=== PATIENT | female | born 1975 ===

== ENCOUNTER 2017-09-16 14:51 | Emergency (ER) | payer OTHER ==
[~2017-09-16] VITALS: Ht 167.6 cm; Wt 92.5 kg
[2017-09-16] MEDS ORDERED: BUPROPION XL300 MG (15:29)
[2017-09-16] MEDS ORDERED: JANUVIA100 MG (15:29)
[2017-09-16] MEDS ORDERED: RISPERDAL M-TAB1 MG (15:29)
[2017-09-16] MEDS ORDERED: ENALAPRIL MALEAT5 MG (15:30)
[2017-09-16] MEDS ORDERED: CLONAZEPAM1 MG (15:30)
[2017-09-16] MEDS ORDERED: PANTOPRAZOLE SO40 MG (15:31)
[2017-09-16] MEDS ORDERED: VASOTEC5 MG (15:39)
[2017-09-27] MEDS ORDERED: WELLBUTRIN XL300 MG PO (13:15)
[2017-09-27] MEDS ORDERED: CLONAZEPAM1 MG PO (13:16)
[2017-09-27] MEDS ORDERED: LEVO-T25 MCG PO (13:16)
[2017-09-27] MEDS ORDERED: PAXIL40 MG PO (13:17)
[2017-09-27] MEDS ORDERED: PRILOSEC10 M2 PO (13:17)
[2017-09-27] MEDS ORDERED: LANTUS SOL100 UNIT/1 (13:17)
[2017-09-27] MEDS ORDERED: HUMALOG100 UNIT/1 (13:18)
== END 2017-09-16 22:54 | disposition home or self-care (01) ==
LOC: ER 14:51
DX: R10.32 Left lower quadrant pain (principal)

== ENCOUNTER 2017-10-01 05:50 | Inpatient (IN) | payer OTHER ==
[~2017-10-01] VITALS: Ht 170.2 cm; Wt 90.3 kg
[~2017-10-01 05:50] MED LIST: BUPROPION XL300 MG; CLONAZEPAM1 MG; CLONAZEPAM1 MG PO; ENALAPRIL MALEAT5 MG; HUMALOG100 UNIT/1; JANUVIA100 MG; LANTUS SOL100 UNIT/1; LEVO-T25 MCG PO; PANTOPRAZOLE SO40 MG; PAXIL40 MG PO; PRILOSEC10 M2 PO; RISPERDAL M-TAB1 MG; VASOTEC5 MG; WELLBUTRIN XL300 MG PO
[2017-10-04] MEDS ORDERED: HYOSCYAMINE0.125 M1 SL (17:36)
[2017-10-04] MEDS ORDERED: Intestinex CAP PO (17:36)
[2017-10-04] MEDS ORDERED: POLY119PG PO (17:36)
[2017-10-04] MEDS ORDERED: AMOX1TAB5 PO (17:38)
== END 2017-10-04 18:38 | DRG 744 ==
LOC: CIR.AMB 05:50 → O/R 12:22 → OB/GYN 12:22 → CIR.AMB 12:23 → OB/GYN 13:09 → CIR.AMB 15:38 → OB/GYN 10-03 08:59
PROVIDERS: Obstetrics & Gynecology; Surgery
PROC: 0DNE4ZZ Release Large Intestine, Percutaneous Endoscopic Approach (ICD-10-PCS; 2017-10-01)
PROC: 0UDB8ZX Extraction of Endometrium, Via Natural or Artificial Opening Endoscopic, Diagnostic (ICD-10-PCS; principal; 2017-10-01 07:00)
PROC: 0WJJ4ZZ Inspection of Pelvic Cavity, Percutaneous Endoscopic Approach (ICD-10-PCS; 2017-10-01 07:00)
PROC: 0DQE4ZZ Repair Large Intestine, Percutaneous Endoscopic Approach (ICD-10-PCS; 2017-10-01 07:00)
DX: N84.0 Polyp of corpus uteri (principal); K91.72 Accidental puncture and laceration of a digestive system organ or structure during other procedure; N93.8 Other specified abnormal uterine and vaginal bleeding; K66.0 Peritoneal adhesions (postprocedural) (postinfection)

== ENCOUNTER 2017-10-16 00:01 | Inpatient (IN) | payer OTHER ==
[~2017-10-16] VITALS: Ht 170.2 cm; Wt 90.3 kg
[~2017-10-16 00:01] MED LIST changes: +AMOX1TAB5 PO; +HYOSCYAMINE0.125 M1 SL; +Intestinex CAP PO; +POLY119PG PO
[2017-10-19] MEDS ORDERED: LINEZOLID600 MG PO (09:32)
== END 2017-10-19 11:30 | disposition home or self-care (01) | DRG 603 ==
LOC: ER 00:01 → MEDI 12:39 → SEC-K 12:39 → MEDI 16:20
PROC: B54NZZZ Ultrasonography of Left Upper Extremity Veins (ICD-10-PCS; principal; 2017-10-16)
PROC: BW21Y0Z Computerized Tomography (CT Scan) of Abdomen and Pelvis using Other Contrast, Unenhanced and Enhanced (ICD-10-PCS; 2017-10-16)
DX: L03.114 Cellulitis of left upper limb (principal); I80.8 Phlebitis and thrombophlebitis of other sites; E11.65 Type 2 diabetes mellitus with hyperglycemia

== ENCOUNTER 2017-11-16 11:00 | Inpatient (IN) | payer OTHER ==
[~2017-11-16 11:00] MED LIST changes: +LINEZOLID600 MG PO
[2017-11-27] MEDS ORDERED: JANUVIA100 MG (14:48)
[2017-11-27] MEDS ORDERED: ESTAZOLAM1 MG (14:49)
[2017-11-27] MEDS ORDERED: PEPCID40 MG (14:49)
[2017-11-27] MEDS ORDERED: RISPERDAL1 MG (14:50)
[2017-11-27] MEDS ORDERED: WELLBUTRIN XL300 MG (14:51)
[2017-11-27] MEDS ORDERED: HUMALOG100 UNIT/1 (14:55)
[2017-11-29] MEDS ORDERED: GABAPENTIN600 MG PO (07:18)
[2017-11-29] MEDS ORDERED: ESTAZOLAM1 MG PO (10:32)
== END 2017-11-29 12:17 | DRG 739 ==
LOC: O/R 11-26 06:26 → RECOVERY 11-26 07:00 → OB/GYN 11-26 10:37 → RECOVERY 11-26 11:00 → OB/GYN 11-29 12:17
PROVIDERS: Obstetrics & Gynecology
PROC: 0DNW0ZZ Release Peritoneum, Open Approach (ICD-10-PCS; 2017-11-26)
PROC: 0UT10ZZ Resection of Left Ovary, Open Approach (ICD-10-PCS; 2017-11-26)
PROC: 0UT90ZZ Resection of Uterus, Open Approach (ICD-10-PCS; principal; 2017-11-26 07:00)
DX: C54.1 Malignant neoplasm of endometrium (principal); K63.1 Perforation of intestine (nontraumatic); N83.12 Corpus luteum cyst of left ovary; N73.6 Female pelvic peritoneal adhesions (postinfective); E11.9 Type 2 diabetes mellitus without complications; N93.8 Other specified abnormal uterine and vaginal bleeding; D25.9 Leiomyoma of uterus, unspecified; D64.89 Other specified anemias; I11.9 Hypertensive heart disease without heart failure; E03.8 Other specified hypothyroidism; F32.89 Other specified depressive episodes

== ENCOUNTER 2017-11-20 08:40 | Day surgery (SDC) | payer OTHER | END 2017-11-20 13:30 | disposition home or self-care (01) | LOC: AMB-ENDOS 08:40 | DX: D12.3 Benign neoplasm of transverse colon (principal); K57.30 Diverticulosis of large intestine without perforation or abscess without bleeding ==